=== PATIENT | female | born 1990 | race Caucasian/White ===

== ENCOUNTER 2019-11-05 06:31 | Day surgery (SDC) | payer MEDICAID ==
[~2019-11-05 06:31] MED LIST: Lactated Ringers 1,000 ML IV SCH; Sodium Chloride 0.9% 10 ML SDV IV PRN; Sodium Chloride 0.9% 10 ML Syringe FLUSH PRN; Sodium Chloride 0.9% 2.5 ML Syringe FLUSH ONE; Sodium Chloride 0.9% 2.5 ML Syringe FLUSH PRN
[2019-11-05] MEDS ORDERED: Bupivacaine 0.25% 10 ML SDV ONE (07:27)
--- NOTE | 2019-11-05 07:31 | PCM.PREANE ---
Preanesthetic Assessment - Anesthesia/Transfusion/Family Hx Anesthesia History: Prior Anesthesia Without Reaction Family History of Anesthesia Reaction: No Transfusion History: No Prior Transfusion(s) Intubation History: Unknown - Review of Systems General: No Symptoms Pulmonary: No Symptoms Cardiovascular: No Symptoms Gastrointestinal: Abdominal Pain Neurological: No Symptoms Other: Reports: None - Physical Assessment NPO Status Date: 11/05/19 NPO Status Time: 06:00 Vital Signs: Last Vital Signs Temp 36.5 C 11/05/19 06:40 Pulse 72 11/05/19 06:40 Resp 18 11/05/19 06:40 BP 137/77 11/05/19 06:40 Pulse Ox 98 11/05/19 06:40 Height: 5 ft 6.5 in Weight: 71.668 kg ASA Class: 2 Mental Status: Alert & Oriented x3 Airway Class: Mallampati = 2 Dentition: Reports: Normal Dentition Thyro-Mental Finger Breadths: 3 Mouth Opening Finger Breadths: 2 ROM/Head Extension: Full Lungs: Clear to Auscultation, Normal Respiratory Effort Cardiovascular: Regular Rate, Regular Rhythm - Lab Values: Laboratory Last Values WBC 6.15 K/uL (4.0-11.0) 11/05/19 06:50 RBC 4.44 M/uL (4.30-5.90) 11/05/19 06:50 Hgb 13.8 g/dL (12.0-16.0) 11/05/19 06:50 Hct 40.1 % (36.0-46.0) 11/05/19 06:50 MCV 90.3 fL (80.0-98.0) 11/05/19 06:50 MCH 31.1 pg (27.0-32.0) 11/05/19 06:50 MCHC 34.4 g/dL (31.0-37.0) 11/05/19 06:50 RDW Std Deviation 43.0 fl (28.0-62.0) 11/05/19 06:50 RDW Coeff of Gene 13 % (11.0-15.0) 11/05/19 06:50 Plt Count 248 K/uL (150-400) 11/05/19 06:50 MPV 9.60 fL (7.40-12.00) 11/05/19 06:50 Nucleated RBC % 0.0 /100WBC 11/05/19 06:50 Nucleated RBCs # 0 K/uL 11/05/19 06:50 - Allergies Allergies/Adverse Reactions: Allergies Allergy/AdvReac Type Severity Reaction Status Date / Time Penicillins Allergy Hives Verified 11/01/19 10:19 - Blood Blood Available: No - Anesthesia Plan Pre-Op Medication Ordered: None - Acknowledgements Anesthesia Type Planned: General Anesthesia Pt an Appropriate Candidate for the Planned Anesthesia: Yes Alternatives and Risks of Anesthesia Discussed w Pt/Guardian: Yes Pt/Guardian Understands and Agrees with Anesthesia Plan: Yes PreAnesthesia Questionnaire HEENT History: Reports: Other (See Below) Other HEENT History: wears glasses/contacts Cardiovascular History: Reports: None Respiratory History: Reports: Bronchitis, Recurrent Gastrointestinal History: Reports: Chronic Constipation, GERD, Irritable Bowel Syndrome Genitourinary History: Reports: Renal Calculus [employer] BU[employer]ER History: Reports: Endometriosis, Other (See Below) (h/o ovarian cyst) Musculoskeletal History: Reports: Arthritis, Fibromyalgia Neurological History: Reports: Migraines Psychiatric History: Reports: Anxiety, Depression Endocrine/Metabolic History: Reports: None Hematologic History: Reports: None Immunologic History: Reports: None Oncologic (Cancer) History: Reports: None Dermatologic History: Reports: Eczema - Past Surgical History Head Surgeries/Procedures: Reports: None HEENT Surgical History: Reports: Oral Surgery Cardiovascular Surgical History: Reports: None Respiratory Surgical History: Reports: None GI Surgical History: Reports: EGD Female Surgical History: Reports: Oophorectomy, Other (See Below) Other Female Surgeries/Procedures: multiple laparoscopies for ovarian cyst, lysis of adhesions and endometriosis, excision of cyst between breasts Endocrine Surgical History: Reports: None Neurological Surgical History: Reports: None Musculoskeletal Surgical History: Reports: Other (See Below) Other Musculoskeletal Surgeries/Procedures:: removal of tonail Oncologic Surgical History: Reports: None Dermatological Surgical History: Reports: Other (See Below) (pilonidal cyst exc. ) - SUBSTANCE USE Smoking Status *Q: Current Every Day Smoker (1/2 ppd) Tobacco Use Within Last Twelve Months: Cigarettes Recreational Drug Type: Reports: Marijuana/Hashish - HOME MEDS Home Medications: Home Meds Acetaminophn/Pyril Mal/Caffein [Midol Caplet] 2 tab PO Q6H PRN 11/01/19 [History ] DULoxetine HCl [Cymbalta] 60 mg PO DAILY 11/01/19 [History] Esomeprazole Magnesium [Nexium] 40 mg PO DAILY 11/01/19 [History] Ibuprofen 1 tab PO TID PRN 11/01/19 [History] Ibuprofen [Advil] 1 tab PO Q6H PRN 11/01/19 [History] Medical Marijuana 1 dose IH ASDIRECTED PRN 11/01/19 [History] Vitamin B Complex 1 tab PO DAILY 11/01/19 [History] - CURRENT (IN HOUSE) MEDS Current Meds: Current Medications Lactated Ringer's (Ringers, Lactated) 1,000 mls @ 500 mls/hr IV BOLUS FRANCIA Last Admin: 11/05/19 07:01 Dose: 500 mls/hr Sodium Chloride (Saline Flush) 10 ml FLUSH ASDIRECTED PRN PRN Reason: Keep Vein Open Sodium Chloride (Normal Saline) 10 ml IV ASDIRECTED PRN PRN Reason: IV Use Sodium Chloride (Saline Flush) 10 ml FLUSH ASDIRECTED PRN PRN Reason: Keep Vein Open Sodium Chloride (Saline Flush) 2.5 ml FLUSH ASDIRECTED PRN PRN Reason: Keep Vein Open Sodium Chloride (Normal Saline) 10 ml IV ASDIRECTED PRN PRN Reason: IV Use Discontinued Medications Sodium Chloride (Saline Flush) 5 ml FLUSH ONETIME ONE Stop: 11/05/19 06:01
[2019-11-05] MEDS ORDERED: fentaNYL 100 MCG/2 ML SDV ONE ×3 (07:34→09:27)
[2019-11-05] MEDS ORDERED: Propofol 200 MG/20 ML SDV ONE (07:34)
[2019-11-05] MEDS ORDERED: Midazolam 1 MG/ML 2 ML SDV ONE (07:34)
[2019-11-05] MEDS ORDERED: Lidocaine 2% 5 ML SDV ONE (07:36)
[2019-11-05] MEDS ORDERED: Rocuronium 100 MG/10 ML Syringe ONE (07:37)
[2019-11-05] MEDS ORDERED: Methylene Blue 50 MG/10 ML Ampule ONE (07:39)
[2019-11-05] MEDS ORDERED: Ondansetron 4 MG/2 ML SDV ONE (08:16)
[2019-11-05] MEDS ORDERED: Ketorolac 30 MG/ML SDV ONE (08:16)
[2019-11-05] MEDS ORDERED: Dexamethasone 4 MG/ML 5 ML MDV ONE (08:16)
[2019-11-05] MEDS ORDERED: Neostigmine Methylsulfate 1 MG/ML 5 ML Syringe ONE (08:42)
[2019-11-05] MEDS ORDERED: Glycopyrrolate 0.2 MG/ML SDV ONE (08:42)
[2019-11-05] MEDS ORDERED: Phenylephrine/Normal Saline 100 MCG/ML 10 ML Syringe ONE (08:43)
[2019-11-05] MEDS ORDERED: Acetaminophen/HYDROcodone 325-5 MG Tab PO PRN (09:15)
--- NOTE | 2019-11-05 09:19 | PCM.OPNOTE ---
- General Post-Op/Procedure Note Date of Surgery/Procedure: 11/05/19 Operative Procedure(s): Diagnostic Laparoscopy Findings: Normal sized retroverted uterus Laparoscopy showed no deposits in the anterior and posterior cul-de-sac Minimal endometriotic deposits in on the ovaries Pre Op Diagnosis: Endometriosis. Worsening Chronic pelvic pain Post-Op Diagnosis: Endometriosis Anesthesia Technique: General ET Tube Primary Surgeon: Everett Tripathi Anesthesia Provider: Darlene Borja Fluid Replacement, Intraop: 1,000 EBL in mLs: 5 Complications: None Condition: Good
[2019-11-05] MEDS ORDERED: HYDROmorphone 2 MG/ML Syringe IVPUSH PRN (09:22)
[2019-11-05] MEDS: fentaNYL 100 MCG/2 ML SDV IVPUSH PRN ×2 (09:32→09:38)
--- NOTE | 2019-11-05 09:52 | PCM.POSTAN ---
POST ANESTHESIA ASSESSMENT - MENTAL STATUS Mental Status: Alert, Oriented - VITAL SIGNS Vital Signs: Last Vital Signs Temp 36.5 C 11/05/19 06:40 Pulse 77 11/05/19 09:46 Resp 17 11/05/19 09:46 BP 105/52 L 11/05/19 09:46 Pulse Ox 98 11/05/19 09:46 - RESPIRATORY Respiratory Status: Respiratory Rate WNL, Airway Patent, O2 Saturation Stable - CARDIOVASCULAR CV Status: Pulse Rate WNL, Blood Pressure Stable - GASTROINTESTINAL GI Status: No Symptoms - PAIN Pain Score: 0 - POST OP HYDRATION Hydration Status: Adequate & Stable - OBSERVATIONS Free Text/Narrative:: No anesthesia problems
--- NOTE | 2019-11-05 10:25 | PCM48HPAN ---
Post Anesthesia Note - EVALUATION WITHIN 48HRS OF ANESTHETIC Vital Signs in Normal Range: Yes Patient Participated in Evaluation: Yes Respiratory Function Stable: Yes Airway Patent: Yes Cardiovascular Function Stable: Yes Hydration Status Stable: Yes Pain Control Satisfactory: Yes Nausea and Vomiting Control Satisfactory: Yes Mental Status Recovered: Yes Vital Signs: Last Vital Signs Temp 36.5 C 11/05/19 09:50 Pulse 64 11/05/19 10:24 Resp 16 11/05/19 10:24 BP 109/58 L 11/05/19 10:24 Pulse Ox 95 11/05/19 10:24 - COMMENTS/OBSERVATIONS Free Text/Narrative:: No anesthesia problems
--- NOTE | 2019-11-05 15:07 | OR ---
SURGEON: MELISSA COLVIN DATE OF PROCEDURE:11/06/2019 PREOPERATIVE DIAGNOSES: A 29-year-old, para 0, with chronic pelvic pain secondary to endometriosis, history of four laparoscopic surgeries. POSTOPERATIVE DIAGNOSES: A 29-year-old, para 0, with chronic pelvic pain secondary to endometriosis, history of four laparoscopic surgeries. PROCEDURE: Diagnostic laparoscopy. ESTIMATED BLOOD LOSS: 5. IV FLUID: 1000. COMPLICATIONS: None. NOTES AND FINDINGS: EUA showed a retroverted normal-sized uterus. Laparoscopy showed absence of the right tube and ovary. There was no endometriotic deposit in the anterior and posterior cul-de-sac. Very minimal endometriotic spots noted on the left ovary . BRIEF HISTORY: She has hx of chronic pelvic pain , she has had laparoscopic surgery with [facility], She was diagnosed with endometriosis laparoscopically . She was complaining of worsening of her pelvic pain. The patient was initially referred for a hysterectomy with oophorectomy, which she then canceled. However, the patientwas complaining of pain, and she really wanted to know whether endometriosis was getting worse, so she insisted on having a laparoscopy. She was explained the risks, benefits, and alternatives. She decided to proceed. She has tried medical management in the past which did not help her symptoms DESCRIPTION OF PROCEDURE: The patient was taken to the operating room where general anesthesia was performed without difficulty. She was examined under general anesthesia. The above- noted finding was found. She was placed in the dorsal lithotomy position and prepped and draped in the usual sterile fashion. An Allis was used to grab the cervix in order to be able to manipulate the cervix. Attention was then turned to the patient's abdomen where a 5 mm umbilical incision was made in the inferior part of the umbilicus. The abdomen was then entered in via direct entry with the laparoscope. Entry was confirmed by visualization and a low CO2 pressure was noted of 5 mmHg and pneumoperitoneum was obtained up to 15 mmHg. The patient was placed then in Trendelenburg position. A second Left lower quadrant port was placed. The uterus was then elevated in the operating field. The pelvis was then inspected thoroughly. Pictures were taken. The left ovary was noted to have some endometriotic deposits, very minimal. Then the pneumoperitoneum was deflated and the trocars were removed . Then, the laparoscopic incision was closed with two 3-0 Monocryl. The Steri- Strips was placed and the Allis was removed without difficulty. The patient was taken to the recovery room in stable condition. HERBERT ALEX /[id number] MTDD
== END 2019-11-05 10:30 | disposition home or self-care (01) ==
LOC: MW.SDS 06:31
PROVIDERS: ATTEND Obstetrics & Gynecology
DX: N80.9 Endometriosis, unspecified (principal); G89.29 Other chronic pain; I10 Essential (primary) hypertension; K21.9 Gastro-esophageal reflux disease without esophagitis; M19.90 Unspecified osteoarthritis, unspecified site; F32.9 Major depressive disorder, single episode, unspecified; F41.9 Anxiety disorder, unspecified; F17.210 Nicotine dependence, cigarettes, uncomplicated; Z88.0 Allergy status to penicillin; Z90.721 Acquired absence of ovaries, unilateral; Z90.79 Acquired absence of other genital organ(s); Z79.899 Other long term (current) drug therapy; Z79.2 Long term (current) use of antibiotics; Z79.52 Long term (current) use of systemic steroids; Z98.890 Other specified postprocedural states
CPT/HCPCS: 36415; 49320; 81025; 85027; 86850; 86900; 86901; J0131; J0330; J1100; J1170; J1885; J2001; J2250; J2370; J2405; J2704; J3010; J3490; J7120; 00840

== ENCOUNTER 2019-11-16 10:14 | Day surgery (SDC) | payer MEDICAID ==
[~2019-11-16 10:14] MED LIST changes: +Lidocaine 2% 5 ML SDV ONE; +Midazolam 1 MG/ML 2 ML SDV ONE; +Ondansetron 4 MG/2 ML SDV ONE; +Propofol 200 MG/20 ML SDV ONE; +Rocuronium 100 MG/10 ML Syringe ONE; -Sodium Chloride 0.9% 2.5 ML Syringe FLUSH ONE; +fentaNYL 100 MCG/2 ML SDV ONE; +fentaNYL 250 MCG/5 ML SDV ONE
--- NOTE | 2019-11-16 11:06 | PCM.PREANE ---
Preanesthetic Assessment - Anesthesia/Transfusion/Family Hx Anesthesia History: Prior Anesthesia Without Reaction Family History of Anesthesia Reaction: No Transfusion History: No Prior Transfusion(s) Intubation History: Unknown - Review of Systems General: No Symptoms Pulmonary: No Symptoms Cardiovascular: No Symptoms Neurological: No Symptoms Other: Reports: None - Physical Assessment NPO Status Date: 11/15/19 Vital Signs: Last Vital Signs Temp 96.8 F L 11/16/19 10:25 Pulse 92 11/16/19 10:25 Resp 18 11/16/19 10:25 BP 139/71 11/16/19 10:25 Pulse Ox 100 11/16/19 10:25 Height: 5 ft 6 in Weight: 71.214 kg ASA Class: 2 Mental Status: Alert & Oriented x3 Airway Class: Mallampati = 2 Dentition: Reports: Normal Dentition ROM/Head Extension: Full Lungs: Clear to Auscultation, Normal Respiratory Effort Cardiovascular: Regular Rate, Regular Rhythm - Lab Values: Laboratory Last Values Urine HCG, Qual NEGATIVE (NEGATIVE) 11/16/19 10:25 - Allergies Allergies/Adverse Reactions: Allergies Allergy/AdvReac Type Severity Reaction Status Date / Time Penicillins Allergy Hives Verified 11/10/19 15:50 - Blood Blood Available: No - Anesthesia Plan Pre-Op Medication Ordered: None - Acknowledgements Anesthesia Type Planned: General Anesthesia Pt an Appropriate Candidate for the Planned Anesthesia: Yes Alternatives and Risks of Anesthesia Discussed w Pt/Guardian: Yes Pt/Guardian Understands and Agrees with Anesthesia Plan: Yes PreAnesthesia Questionnaire HEENT History: Reports: Other (See Below) Other HEENT History: wears glasses/contacts Cardiovascular History: Reports: None Respiratory History: Reports: Bronchitis, Recurrent Gastrointestinal History: Reports: Chronic Constipation, GERD, Irritable Bowel Syndrome, Other (See Below) Other Gastrointestinal History: Anal fissure Genitourinary History: Reports: Renal Calculus [employer] WORKER History: Reports: Endometriosis Musculoskeletal History: Reports: Arthritis, Fibromyalgia Neurological History: Reports: Migraines Psychiatric History: Reports: Anxiety, Depression, Panic Attack Endocrine/Metabolic History: Reports: None Hematologic History: Reports: None Immunologic History: Reports: None Oncologic (Cancer) History: Reports: None Dermatologic History: Reports: Eczema - Past Surgical History Head Surgeries/Procedures: Reports: None HEENT Surgical History: Reports: Oral Surgery Other HEENT Surgeries/Procedures: wisdom teeth Cardiovascular Surgical History: Reports: None Respiratory Surgical History: Reports: None GI Surgical History: Reports: EGD Female Surgical History: Reports: Oophorectomy, Other (See Below) Other Female Surgeries/Procedures: multiple laparoscopies for ovarian cyst, lysis of adhesions and endometriosis, excision of cyst between breasts Endocrine Surgical History: Reports: None Neurological Surgical History: Reports: None Musculoskeletal Surgical History: Reports: Other (See Below) Other Musculoskeletal Surgeries/Procedures:: removal of toenail Oncologic Surgical History: Reports: None Dermatological Surgical History: - SUBSTANCE USE Smoking Status *Q: Current Every Day Smoker Tobacco Use Within Last Twelve Months: Cigarettes Recreational Drug Use History: No - HOME MEDS Home Medications: Home Meds DULoxetine HCl [Cymbalta] 60 mg PO QAM 11/01/19 [History] Esomeprazole Magnesium [Nexium] 40 mg PO DAILY 11/01/19 [History] Medical Marijuana 1 dose IH DAILY PRN 11/01/19 [History] Albuterol [Ventolin HFA] 2 puff INH Q4H PRN 11/10/19 [History] ClonazePAM [KlonoPIN] 0.5 mg PO ASDIRECTED PRN 11/10/19 [History] Dicyclomine [Bentyl] 20 mg PO Q6H PRN 11/10/19 [History] Fluticasone Propion/Salmeterol [Fluticasone-Salmeterol 100-50] 1 puff INH BID [History] Levocetirizine Dihydrochloride 5 mg PO ASDIRECTED PRN 11/10/19 [History] Nifedipine/Lidocaine 1 dose TOP BID PRN 11/10/19 [History] busPIRone [Buspar] 5 mg PO DAILY 11/10/19 [History] traZODone HCl [Trazodone HCl] 50 mg PO DAILY 11/10/19 [History] - CURRENT (IN HOUSE) MEDS Current Meds: Current Medications Lactated Ringer's (Ringers, Lactated) 1,000 mls @ 125 mls/hr IV ASDIRECTED FRANCIA Last Admin: 11/16/19 10:52 Dose: 125 mls/hr Sodium Chloride (Saline Flush) 10 ml FLUSH ASDIRECTED PRN PRN Reason: Keep Vein Open Sodium Chloride (Saline Flush) 2.5 ml FLUSH ASDIRECTED PRN PRN Reason: Keep Vein Open Sodium Chloride (Saline Flush) 10 ml FLUSH ASDIRECTED PRN PRN Reason: Keep Vein Open Sodium Chloride (Saline Flush) 2.5 ml FLUSH ASDIRECTED PRN PRN Reason: Keep Vein Open Sodium Chloride (Normal Saline) 10 ml IV ASDIRECTED PRN PRN Reason: IV Use Discontinued Medications Fentanyl (Sublimaze) Confirm Administered Dose 250 mcg .ROUTE .STK-MED ONE Stop: 11/16/19 07:33 Fentanyl (Sublimaze) Confirm Administered Dose 100 mcg .ROUTE .STK-MED ONE Stop: 11/16/19 10:09 Lidocaine (Xylocaine-Mpf 2%) Confirm Administered Dose 5 ml .ROUTE .STK-MED ONE Stop: 11/16/19 07:33 Lidocaine (Xylocaine-Mpf 2%) Confirm Administered Dose 5 ml .ROUTE .STK-MED ONE Stop: 11/16/19 10:08 Midazolam HCl (Versed 1 Mg/Ml) Confirm Administered Dose 2 mg .ROUTE .STK-MED ONE Stop: 11/16/19 07:33 Midazolam HCl (Versed 1 Mg/Ml) Confirm Administered Dose 2 mg .ROUTE .STK-MED ONE Stop: 11/16/19 10:09 Ondansetron HCl (Zofran) Confirm Administered Dose 4 mg .ROUTE .STK-MED ONE Stop: 11/16/19 07:33 Propofol (Diprivan 20 Ml) Confirm Administered Dose 200 mg .ROUTE .STK-MED ONE Stop: 11/16/19 07:33 Propofol (Diprivan 20 Ml) Confirm Administered Dose 400 mg .ROUTE .STK-MED ONE Stop: 11/16/19 10:09 Rocuronium [place] (Zemuron) Confirm Administered Dose 100 mg .ROUTE .STK-MED ONE Stop: 11/16/19 07:33
[2019-11-16] MEDS ORDERED: Ketamine 500 mg/10 ML MDV ONE (14:09)
--- NOTE | 2019-11-16 14:29 | PCM.OPNOTE ---
- General Post-Op/Procedure Note Date of Surgery/Procedure: 11/16/19 Operative Procedure(s): Colonoscopy Findings: Sigmoid polyp x 1 Pre Op Diagnosis: Change in bowel habits Post-Op Diagnosis: Sigmoid polyp Anesthesia Technique: MAC Primary Surgeon: Sveta Manrique Complications: None Condition: Stable
--- NOTE | 2019-11-16 15:07 | PCM.POSTAN ---
POST ANESTHESIA ASSESSMENT - MENTAL STATUS Mental Status: Alert, Oriented - VITAL SIGNS Vital Signs: Last Vital Signs Temp 97.7 F 11/16/19 14:47 Pulse 72 11/16/19 14:40 Resp 14 11/16/19 14:47 BP 139/87 11/16/19 14:47 Pulse Ox 100 11/16/19 14:47 - RESPIRATORY Respiratory Status: Respiratory Rate WNL, Airway Patent, O2 Saturation Stable - CARDIOVASCULAR CV Status: Pulse Rate WNL, Blood Pressure Stable - GASTROINTESTINAL GI Status: No Symptoms - POST OP HYDRATION Hydration Status: Adequate & Stable
--- NOTE | 2019-11-16 15:07 | PCM48HPAN ---
Post Anesthesia Note - EVALUATION WITHIN 48HRS OF ANESTHETIC Vital Signs in Normal Range: Yes Patient Participated in Evaluation: Yes Respiratory Function Stable: Yes Airway Patent: Yes Cardiovascular Function Stable: Yes Hydration Status Stable: Yes Pain Control Satisfactory: Yes Nausea and Vomiting Control Satisfactory: Yes Mental Status Recovered: Yes Vital Signs: Last Vital Signs Temp 97.7 F 11/16/19 14:47 Pulse 72 11/16/19 14:40 Resp 14 11/16/19 14:47 BP 139/87 11/16/19 14:47 Pulse Ox 100 11/16/19 14:47
--- NOTE | 2019-11-17 21:44 | OR ---
SURGEON: SVETA MANRIQUE MD DATE OF PROCEDURE: 11/16/2019 PREOPERATIVE DIAGNOSIS: Change in bowel habits. POSTOPERATIVE DIAGNOSIS: Sigmoid colon polyp. PROCEDURE PERFORMED: Diagnostic colonoscopy. PRIMARY SURGEON: Sveta Manrique MD ANESTHESIA: MAC. INSTRUMENT USED: Olympus colonoscope. EXTENT OF EXAM: To the cecum. PREPARATION: Good. LIMITATIONS: None. INDICATIONS FOR EXAMINATION: The patient is a 29-year-old female who presents with changes in her bowel habits. The decision was made to proceed with diagnostic colonoscopy. I explained the procedure, expected perioperative course, and risks including bleeding, infection, or damage to surrounding structures including perforation. The patient verbalized understanding and wishes to proceed. PROCEDURE IN DETAIL: The patient was brought into the endoscopy suite and placed in the left lateral decubitus position. A time-out was completed verifying the patient's name, age, date of , allergies, and procedure to be performed. Monitored anesthesia care was induced and continuous oxygen was provided via nasal cannula throughout the procedure. After adequate sedation was achieved, a digital rectal exam was performed. This exam was within normal limits. A well-lubricated colonoscope was inserted in the rectum and advanced under direct visualization to the level of the cecum. Cecum was identified by both visual and anatomic landmarks. A photograph was taken of the cecal cap as well as with the scope retroflexed within the cecum. The scope was then fully withdrawn while examining the color, texture, anatomy, and integrity of the mucosa from the cecum to the anal canal. The patient was found to have a small sessile polyp in the distal sigmoid colon. This was removed in piecemeal fashion using a cold biopsy forceps. The scope was then brought into the rectum and retroflexed to allow visualization of the anal canal opening. This appeared normal and a photograph was taken. Scope was then straightened out and fully withdrawn. The cecum to anus time was 6 minutes. The patient tolerated the procedure well and was transferred to the PACU in stable condition. ENDOSCOPIC DIAGNOSIS: Sigmoid colon polyp. RECOMMENDATIONS: Follow up in clinic in 2 weeks. DIANDRA ALEX /[id number]
== END 2019-11-16 15:10 | disposition home or self-care (01) ==
LOC: MW.SDS 10:14
PROVIDERS: ATTEND Surgery
DX: K63.5 Polyp of colon (principal); G89.29 Other chronic pain; F41.8 Other specified anxiety disorders; F41.0 Panic disorder [episodic paroxysmal anxiety]; K58.9 Irritable bowel syndrome, unspecified; K60.2 Anal fissure, unspecified; K21.9 Gastro-esophageal reflux disease without esophagitis; M19.90 Unspecified osteoarthritis, unspecified site; F17.200 Nicotine dependence, unspecified, uncomplicated; Z88.0 Allergy status to penicillin; Z79.899 Other long term (current) drug therapy; Z79.51 Long term (current) use of inhaled steroids; Z98.890 Other specified postprocedural states
CPT/HCPCS: 45380; 81025; J2001; J2250; J2704; J3010; J7120; 88305; J2405

== ENCOUNTER 2022-08-20 07:51 | Emergency (ER) | payer MEDICAID ==
[2022-08-20] MEDS ORDERED: Morphine 2 MG/ML SYRINGE IVPUSH ONE (09:21)
[2022-08-20] MEDS ORDERED: Ketorolac 30 MG/ML SDV IVPUSH ONE (09:21)
[2022-08-20 09:53] LABS: CARBON DIOXIDE,CO2 23.3 mmol/L (21.0-32.0); POTASSIUM,K 4.6 mmol/L (3.5-5.1)
== END 2022-08-20 12:54 | disposition home or self-care (01) ==
LOC: MW.ED 07:51
DX: N80.9 Endometriosis, unspecified (principal); K21.9 Gastro-esophageal reflux disease without esophagitis; M19.90 Unspecified osteoarthritis, unspecified site; Z88.0 Allergy status to penicillin; Z79.899 Other long term (current) drug therapy; Z72.0 Tobacco use
CPT/HCPCS: 36415; 74176; 80053; 84703; 85025; 93005; 96374; 96375; 99284; J1885; J2270

== ENCOUNTER 2022-10-24 07:46 | Day surgery (SDC) | payer MEDICAID ==
[2022-10-22 10:22] LABS: CARBON DIOXIDE,CO2 25.9 mmol/L (21.0-32.0); POTASSIUM,K 4.1 mmol/L (3.5-5.1)
[~2022-10-24 07:46] MED LIST changes: -Lidocaine 2% 5 ML SDV ONE; -Midazolam 1 MG/ML 2 ML SDV ONE; -Ondansetron 4 MG/2 ML SDV ONE; -Propofol 200 MG/20 ML SDV ONE; -Rocuronium 100 MG/10 ML Syringe ONE; -Sodium Chloride 0.9% 10 ML SDV IV PRN; +Sodium Chloride 0.9% 20 ML SDV IV PRN; +cefOXitin 2 GM in Premix Bag 1 BAG IV ONE; -fentaNYL 100 MCG/2 ML SDV ONE; -fentaNYL 250 MCG/5 ML SDV ONE
[2022-10-24] MEDS ORDERED: Ondansetron 4 MG/2 ML SDV IVPUSH PRN ×2 (08:50→11:24)
[2022-10-24] MEDS ORDERED: HYDROmorphone 1 MG/ML Syringe IVPUSH PRN (08:50)
[2022-10-24] MEDS ORDERED: Metoclopramide 10 MG/2 ML SDV IVPUSH PRN (08:50)
[2022-10-24] MEDS ORDERED: Naloxone 0.4 MG/ML SDV IVPUSH PRN (08:50)
[2022-10-24] MEDS ORDERED: Albuterol 0.083% 2.5 MG/3 ML Neb Soln NEB PRN (08:50)
[2022-10-24] MEDS ORDERED: fentaNYL 50 MCG/ML SDV IVPUSH PRN (08:50)
[2022-10-24] MEDS ORDERED: Morphine 2 MG/ML SYRINGE IVPUSH PRN (08:50)
[2022-10-24] MEDS ORDERED: Propofol 200 MG/20 ML SDV ONE ×2 (09:51→10:35)
[2022-10-24] MEDS ORDERED: Lidocaine 2% 5 ML SDV ONE (09:51)
[2022-10-24] MEDS ORDERED: Sugammadex Sodium 200 MG/2 ML VIAL ONE (09:51)
[2022-10-24] MEDS ORDERED: Ondansetron 4 MG/2 ML SDV ONE (09:51)
[2022-10-24] MEDS ORDERED: Rocuronium Bromide 50 MG/5 ML Syringe ONE (09:51)
[2022-10-24] MEDS ORDERED: fentaNYL 250 MCG/5 ML SDV ONE (09:52)
[2022-10-24] MEDS ORDERED: Famotidine 20 MG/2 ML SDV ONE (09:57)
[2022-10-24] MEDS ORDERED: Ropivacaine 0.5% 5 MG/ML 30 ML SDV ONE (09:57)
[2022-10-24] MEDS ORDERED: fentaNYL 100 MCG/2 ML SDV ONE ×4 (09:58→10:59)
[2022-10-24] MEDS ORDERED: cefOXitin 1 GM Vial ONE (10:23)
[2022-10-24] MEDS ORDERED: Magnesium Sulfate (4.06 MEQ/ML) 5 GM/10 ML SDV ONE (10:27)
[2022-10-24] MEDS ORDERED: Fluorescein 5 ML Vial ONE (11:05)
[2022-10-24] MEDS ORDERED: HYDROmorphone 2 MG/ML Syringe ONE (11:20)
[2022-10-24] MEDS ORDERED: Acetaminophen/oxyCODONE 325-5 MG Tab PO PRN (11:24)
[2022-10-24] MEDS ORDERED: Ketorolac 30 MG/ML SDV IVPUSH ONE (11:24)
[2022-10-24] MEDS ORDERED: Morphine 4 MG/ML Syringe IVPUSH PRN (11:24)
[2022-10-24] MEDS ORDERED: Promethazine 25 MG/ML SDV IM PRN (11:24)
[2022-10-24] MEDS: Acetaminophen/oxyCODONE 325-5 MG Tab PO PRN ×3 (12:48→21:07)
[2022-10-24] MEDS: Ketorolac 30 MG/ML SDV IVPUSH PRN (19:35)
[2022-10-25] MEDS: Acetaminophen/oxyCODONE 325-5 MG Tab PO PRN ×2 (01:15→05:33)
[2022-10-25] MEDS: Ketorolac 30 MG/ML SDV IVPUSH PRN ×2 (01:17→07:50)
[2022-10-25 06:21] LABS: CARBON DIOXIDE,CO2 27.3 mmol/L (21.0-32.0); POTASSIUM,K 3.7 mmol/L (3.5-5.1)
== END 2022-10-25 10:30 | disposition home or self-care (01) ==
LOC: MW.SDS 07:46 → MW.OB 12:30 → UNDOADMOB 12:30 → UNDODISOB 10-25 10:20 → MW.SDS 10-25 10:30
PROVIDERS: ATTEND Obstetrics & Gynecology
DX: N80.03 Adenomyosis of the uterus (principal); N80.00 Endometriosis of the uterus, unspecified; G89.29 Other chronic pain; F41.8 Other specified anxiety disorders; K21.9 Gastro-esophageal reflux disease without esophagitis; G43.909 Migraine, unspecified, not intractable, without status migrainosus; F41.0 Panic disorder [episodic paroxysmal anxiety]; F17.210 Nicotine dependence, cigarettes, uncomplicated; Z88.0 Allergy status to penicillin; Z79.899 Other long term (current) drug therapy
CPT/HCPCS: 36415; 58571; 80048; 84703; 85025; 85027; 86850; 86900; 86901; A9270; J0694; J1170; J1885; J2704; J2795; J3010; J3475; J3490; J7030; J7120; 00840; 64488; J2405